=== PATIENT | female | born 1950 | race Two or more races ===

== ENCOUNTER 2024-12-26 10:18 | Emergency (ER) | payer OTHER ==
[~2024-12-26] VITALS: Ht 149.9 cm; Wt 55.9 kg
--- NOTE | 2024-12-26 11:00 | ED.PDOC ---
GI ASSESSMENT HPI Comments NIKKO: GI bleed, stress, decreased appetite one episode of vomiting blood three days ago that has resolved. One episode of black stool few days ago. HPI: Poor Historian. HPI: 74y F who presents to the ED for chief complaint of abdominal pain - pt presents to the ED with multiple complaints including abdominal pain, anxiety, and 1x episode of blood in vomit with noted constipation - pt states she told ED staff during triage she has been under stress due to recently being made homeless - pt states its has been causing her increased anxiety, with noted abdominal p ain and constipation for the past 2 days - pt states she had 1x episode of blood in vomit 2 days prior and states she had 1 bowel movement which was minimal and notes it was "black" - pt states her abdominal pain has been severe that she has not been to keep any water or food down during this time period - pt otherwise has noted BP of 139/98, and 02 sat of 85% with otherwise stable vitals - pt otherwise denies fever, cough, chills or any associated symptoms Past Medical History: HTN, HLD, DJD, anemia, CKD, R ankle fracture, osteopenia, h/o lower back pain Past Surgical History: c-sections, Social History: Denies ETOH, smoking, and drug use. Medications: unknown Allergies: amlodipine, HCTZ, hydroxyzine, lisinopril, penicillins REVIEW OF SYSTEMS: CONSTITUTIONAL: Denies acute: fever, diaphoresis, chills, HEAD: Denies acute: headache, photophobia Eyes: Denies acute: Double vision, vision loss, eye pain, eye discharge. EARS: Denies acute: tinnitus, hearing loss, ear discharge, ear pain, THROAT: Denies acute: sore throat, swelling, difficulty swallowing , pain with swallowing, change in voice. NECK: Denies acute: neck pain, neck swelling, stiff neck. HEART: Denies acute : chest pain, palpitations, LUNGS: Denies acute: SOB, wheezing, cough, hemoptysis ABDOMEN: Denies acute: diarrhea, hematochezia SKIN: Denies acute: rash, redness, lesions, itchiness. EXTREMITIES: Denies acute: calf pain, numbness, tingling, weakness, denies pain in extremity. Denies acute: Low back pain. Neuro: Denies acute: focal neurological deficit, motor or sensory focal neurological deficit, tremors, seizure like activity, confusion, dizziness, change in mental status, loss of bowel or bladder function, cauda equina like symptoms. : Denies acute: dysuria, hematuria, flank pain, increase in urinary frequency. PSYCH: Denies acute: hallucination, suicidal ideation, homicidal ideation. FEMALE: Denies acute: abnormal vaginal bleeding, foul odor, unusual discharge. PHYSICAL EXAM: General: ----mild----acute distress, awake and alert. Head: normocephalic, atraumatic. Neck: supple, trachea is midline, no swelling. Throat: Normal phonation. Eyes:, no erythema, no purulent discharge, no proptosis, no icterus. Heart: regular rate, regular rhythm, no significant murmur appreciated. Lungs: no apparent respiratory distress, Able to speak in full sentences. No wheezing, no rhonchi, no crackles. No stridors Clear to auscultation bilaterally. Abdomen: Generalized mild tender to palpation, non distended, soft, no guarding, no rebound, + bowel sounds. Neuro: Awake, Alert, oriented to name, self, situation, follows commands GCS=15. Speech is normal. Skin: no petechia, no purpura, no cyanosis, non-pale, not jaundice. Lower extremities: --no - Pitting edema no deformity, no focal swelling, no calf TTP. Makes eye contact. moves all four extremities. Face: no apparent facial droop. ED COURSE: DISCLAIMER: This medical document was created using an electronic medical record system with voice recognition software and computerized dictation system. Although this document has been carefully reviewed, there might still be some phonetic and typographical errors. Occasional wrong-word or "sound-alike" substitutions may have occurred due to the inherent limitations of voice recognition software. These areas are purely typographical due to imperfections of the software programs and do not reflect any compromise in the patient's medical care. Please read the chart carefully and recognize, using context, where these substitutions have occurred. Chief Complaint: abdominal pain Time Seen by MD: 11:00 Reviewed Notes: Allergies Allergies: Coded Allergies: Amlodipine (Verified Allergy, Unknown, LEG SWELLING, 12/26/24) Hydroxyzine (Verified Allergy, Unknown, 12/26/24) Lisinopril (Verified Allergy, Unknown, ANGIOEDEMA, 12/26/24) Penicillins (Verified Allergy, Unknown, 12/26/24) Uncoded Allergies: HCTZ (Allergy, Unknown, FREQUENT URINATION, 12/26/24) Information Source: Patient Mode of Arrival: Ambulatory Past Medical History PAST MEDICAL HISTORY: Anemia, High Lipids, HTN Past Medical History (Other): ckd Was a procedure done? Was a procedure done?: No GI differential Dx Differential Diagnosis: Other (DDX include Diverticulitis, colitis, gastroenteritis, acute abdomen, SBO, enteritis, constipation, volvulus, appendicitis, Gallbladder disease, choledocolithiasis, ascending cholangitis, pancreatitis, intraAbdominal mass/neoplasm, hepatitis, UTI, pylonephritis, kidney stone, aneurysm, dissection, Inflammatory bowel disease, gastroparesis, ischemic bowel, PID, STD.) X-Ray, Labs, Meds, VS Vital Signs Date Time Temp Pulse Resp B/P (MAP) Pulse Ox O2 Delivery O2 Flow Rate FiO2 12/26/24 16:01 98.1 72 17 143/73 (96) 95 98.1 12/26/24 14:30 70 18 93 Room Air* 0 21 12/26/24 13:30 98.9 70 18 153/82 (105) 93 98.9 12/26/24 10:23 98.3 66 18 139/98 99 98.3 Lab Test 12/26/24 13:57 12/26/24 13:45 12/26/24 12:10 12/26/24 11:03 Range/Units Urine Color Light-yellow Yellow Urine Clarity Clear Clear Urine pH 5.0 5.0-9.0 Urine Specific [place] 1.022 1.001-1.035 Urine Protein Trace H Negative Urine Ketones Trace Negative Urine Blood Negative Negative /uL Urine Nitrite Negative Negative Urine Bilirubin Negative Negative Urine Urobilinogen Normal Negative mg/dL Urine Leukocyte Esterase Negative Negative /uL Urine RBC 1 0 - 4 /hpf Urine Microscopic WBC 2 0-5 /HPF Urine Squamous Epithelial Cells None seen <5 /hpf Urine Bacteria None seen None Seen /hpf Urine Glucose Normal Normal mg/dL Troponin I High Sensitivity 11 8 10 </=34 ng/L White Blood Count 10.5 4.4-10.8 10^3/uL Red Blood Count 3.78 L 4.0-5.20 10^6/uL Hemoglobin 11.8 L 12.2-16.2 g/dL Hematocrit 34.4 L 36.0-46.0 % Mean Corpuscular Volume 90.9 80.0-100.0 fL Mean Corpuscular Hemoglobin 31.2 28.0-32.0 pg Mean Corpuscular Hemoglobin Concent 34.3 32.0-36.0 g/dL Red Cell Distribution Width 13.6 11.8-14.3 % Platelet Count 319 140-450 10^3/uL Mean Platelet Volume 7.1 6.9-10.8 fL Neutrophils (%) (Auto) 73.5 37.0-80.0 % Lymphocytes (%) (Auto) 18.8 10.0-50.0 % Monocytes (%) (Auto) 7.0 0.0-12.0 % Eosinophils (%) (Auto) 0.3 0.0-7.0 % Basophils (%) (Auto) 0.4 0.0-2.0 % Neutrophils # (Auto) 7.7 1.6-8.6 10 ^3/uL Lymphocytes # (Auto) 2.0 0.4-5.4 10 ^3/uL Monocytes # (Auto) 0.7 0-1.3 10 ^3/uL Eosinophils # (Auto) 0 0-0.8 10 ^3/uL Basophils # (Auto) 0 0-0.2 10 ^3/uL Nucleated Red Blood Cells 0.1 % Sodium Level 139 136-145 mmol/L Potassium Level 3.6 3.5-5.1 mmol/L Chloride Level 105 98-107 mmol/L Carbon Dioxide Level 22 20-31 mmol/L Anion Gap 12 5-15 Blood Urea Nitrogen 16 9-23 mg/dL Creatinine 1.54 H 0.550-1.02 mg/dL Glomerular Filtration Rate Calc 35 >90 mL/min BUN/Creatinine Ratio 10.4 10.0-20.0 Serum Glucose 95 74-106 mg/dL Lactic Acid Level 1.3 0.4-2.0 mmol/L Calcium Level 9.9 8.7-10.4 mg/dL Magnesium Level 1.6 1.6-2.6 mg/dL Total Bilirubin 0.2 0.2-1.0 mg/dL Aspartate Amino Transferase (AST) 32 13-40 U/L Alanine Aminotransferase (ALT) 18 7-40 U/L Alkaline Phosphatase 73 46-116 U/L Total Protein 7.9 5.7-8.2 g/dL Albumin 4.9 H 3.2-4.8 g/dL Lipase 21 12-53 U/L [address] [address] Ph: [phone] DIAGNOSTIC IMAGING Diagnostic Imaging Report : [id number] Signed PATIENT: MAN EL ACCT: [id number] UNIT: [id number] : 1950 LOC: ER ROOM / BED: / AGE / SEX: 74 / F ADM STATUS: REG ER SERVICE 1102 ORDERING PHYSICIAN: ONDINA PORTILLO DO PROCEDURE(s): ABPL - CT AB PEL WO CON-NO ORAL OR IV REASON: abd pain, poss GI bleed ORDER NUMBER(s): [id number], ACCESSION NUMBER(s): [id number] Indication: abd pain, poss GI bleed Technique: CT axial images of the abdomen and pelvis are obtained without contrast. Coronal and sagittal reformats were obtained. Radiation Dose Information: CTDI volume is 9.5 mGy. Dose-length product is 366 mGy*cm Comparison: None FINDINGS: There is limited interpretation of the abdomen and pelvis without administration of intravenous contrast. 4 mm right middle lobe lung nodule. Adrenal glands, spleen, pancreas over unremarkable in shape. No CT evidence for cholelithiasis. No hydronephrosis, nephrolithiasis. 1 cm left renal hemorrhagic / proteinaceous cysts. Stomach partially distended. Small bowel loops are normal in caliber. Colonic diverticular disease. Moderate volume stool in the colon. No secondary signs for appendicitis. Abdominal aortic tortuosity. Bladder partially distended. No free pelvic fluid. No inguinal lymphadenopathy. Severe degenerate changes right hip. Severe thoracolumbar degenerative disc disease. IMPRESSION: Limited evaluation without contrast. Colonic diverticular disease. 4 mm right middle lobe nodule. Recommend follow-up per Fleischner society criteria. Severe degenerate changes of the hip. Severe thoracolumbar degenerative disc disease. Other findings as described. ATED BY: AMANDEEP VILLATORO MD DICTATED DATE/TIME: 12/26/24 115 SIGNED BY: AMANDEEP VILLATORO MD SIGNED DATE/TIME: 12/26/24 115 CC: Time of 1ST Reevaluation: 15:06 (The case was discussed with the [facility] admitting team (HPI, physical exam, labs and diagnostic tests that were available at the time of disposition, ED course, treatment plan) on the phone. They agreed to transfer the patient to their service by ALS for further evaluation and treatment. Dr. Montiel. Authorization number is--[id number]) Reevaluation 1ST: Patient Education/Counseling: Diagnosis, Treatment Family Education/Counseling: No Family Present Comments MDM: patient presented with the above HPI.---GI bleed---workup was initiated. patient was found with the above mentioned diagnosis. the following medications were ordered: please refer to order lists of meds and tests obtained by myself Dr. Portillo. Patient ED course and VS have been stabilized. Patient has been reassessed in the ED and remained in a stable condition. Patient/family voices understanding and is agreeable with plan. Patient has been observed in the ED adequate length of time to insure improvement/stability. Escalation of care considered: Consideration of escalation to observation or admission Patient was given Protonix and Zofran and fluids Patient was [facility] per insurance requirement for further evaluation and treatment of their presentation. All the reports of any imaging studies that were ordered by myself were reviewed by myself. SEPSIS Sepsis Screen Date sepsis recognized/suspect: Dec 26, 2024 Time Sepsis recognized/suspect: 1027 Recent Procedure: No On Antibiotic Therapy: No Respiratory Rate >20: No Heart Rate >90: No Temp<36 C (96.8 F) or >38.3 C: No SBP <90 or MAP <65 mmHG: No New Acute Mental Status Change: No Is the patient on CPAP, BIPAP,: No Physician Orders Cane Weigher Helper (12/26/24 ) Ct Ab Pel Wo Con-No Oral Or Iv (12/26/24 11:02) Imaging Transfer Request (12/26/24 15:09) Vital Signs Date Time Temp Pulse Resp B/P (MAP) Pulse Ox O2 Delivery O2 Flow Rate FiO2 12/26/24 16:01 98.1 72 17 143/73 (96) 95 98.1 12/26/24 14:30 70 18 93 Room Air* 0 21 12/26/24 13:30 98.9 70 18 153/82 (105) 93 98.9 12/26/24 10:23 98.3 66 18 139/98 99 98.3 Laboratory Tests Test 12/26/24 11:03 Lactic Acid Level 1.3 mmol/L (0.4-2.0) White Blood Count 10.5 10^3/uL (4.4-10.8) Departure 1 Departure Time of Disposition: 12:08 Impression: Primary Impression: GI bleed Additional Impression: Abdominal pain Disposition: 02 SHORT TERM HOSPITAL Admit to: Tele Condition: Guarded Discharged With: Self Critical Care Note Critical Care Time?: No I personally scribed for ONDINA PORTILLO DO ([email or web address]) on 12/26/24 at 11:00. Electronically submitted by Belle Krishnan ([facility]). I personally scribed for ONDINA PORTILLO DO ([email or web address]) on 12/26/24 at 11:26. [facility] I personally scribed for ONDINA PORTILLO DO ([email or web address]) on 12/26/24 at 12:17. Electronically [facility] by [facility] ([facility] ONDINA PORTILLO DO Dec 26, 2024 11:00
[2024-12-26 11:45] LABS: Hematocrit 34.4 % (36.0-46.0); Hemoglobin 11.8 g/dL (12.2-16.2); Mean Corpuscular Hemoglobin 31.2 pg (28.0-32.0); Mean Corpuscular Volume 90.9 fL (80.0-100.0); Nucleated Red Blood Cells % 0.1 %
--- NOTE | 2024-12-26 11:53 | DVH ---
Indication: abd pain, poss GI bleed Technique: CT axial images of the abdomen and pelvis are obtained without contrast. Coronal and sagit dory reformats were obtained. Radiation Dose Information: CTDI volume is 9.5 mGy. Dose-length product is 366 mGy*cm Comparison: None FINDINGS: There is limited interpretation of the abdomen and pelvis without administration of intravenous contr ast. 4 mm right middle lobe lung nodule. Adrenal glands, spleen, pancreas over unremarkable in shape. No CT evidence for cholelithiasis. No hydronephrosis, nephrolithiasis. 1 cm left renal hemorrhagic / proteinaceous cysts. Stomach partially distended. Small bowel loops are normal in caliber. Colonic diverticular disease. Moderate volume stool in the colon. No secondary signs for appendiciti s. Abdominal aortic tortuosity. Bladder partially distended. No free pelvic fluid. No inguinal lymphaden opathy. Severe degenerate changes right hip. Severe thoracolumbar degenerative disc disease. IMPRESSION: Limited evaluation without contrast. Colonic diverticular disease. 4 mm right middle lobe nodule. Recommend follow-up per Fleischner society criteria. Severe degenerate changes of the hip. Severe thoracolumbar degenerative disc disease. Other findings as described.
[2024-12-26 11:54] LABS: Alanine Aminotransferase 18 U/L (7-40); Albumin 4.9 g/dL (3.2-4.8); Alkaline Phosphatase 73 U/L (46-116); Anion Gap 12 (5-15); BUN/Creatinine Ratio 10.4 (10.0-20.0); Bilirubin, Total 0.2 mg/dL (0.2-1.0); Blood Urea Nitrogen 16 mg/dL (9-23); Calcium 9.9 mg/dL (8.7-10.4); Carbon Dioxide 22 mmol/L (20-31); Chloride 105 mmol/L (98-107); Glucose 95 mg/dL (74-106); Magnesium 1.6 mg/dL (1.6-2.6); Potassium 3.6 mmol/L (3.5-5.1); Sodium 139 mmol/L (136-145); Total Protein 7.9 g/dL (5.7-8.2)
[2024-12-26 14:30] VITALS: PULSE 70; RESP 18; O2SAT 93
[2024-12-26 14:35] LABS: Urine Protein, UAD TRACE (Negative)
[2024-12-26 16:01] VITALS: BP 143/73; PULSE 72; RESP 17; TEMP 98.1; O2SAT 95
[2024-12-26] MEDS: SODIUM CHLORIDE 0.9% 1,000 ML IV ONE (16:09)
[2024-12-26] MEDS: PANTOPRAZOLE 40 MG/10 ML VIAL INJ IV ONE (16:09)
[2024-12-26] MEDS: ONDANSETRON HCL 4 MG/2 ML VIAL IV ONE (16:10)
== END 2024-12-26 16:13 | disposition short-term general hospital (02) ==
LOC: ER 10:18
DX: K92.2 Gastrointestinal hemorrhage, unspecified (principal); R10.9 Unspecified abdominal pain; I10 Essential (primary) hypertension; E78.5 Hyperlipidemia, unspecified; Z59.00 Homelessness unspecified; Z88.0 Allergy status to penicillin; Z88.8 Allergy status to other drugs, medicaments and biological substances
CPT/HCPCS: 36415; 74176; 80053; 81001; 83605; 83690; 83735; 84484; 85025; 86850; 86900; 86901; 96374; 99285; J2470